=== PATIENT | female | born 1995 | race Caucasian/White ===

== ENCOUNTER 2018-02-22 07:43 | Outpatient (CLI) | payer OTHER ==
--- NOTE | 2018-02-22 10:30 | MRI ---
MRI OF THE LEFT ANKLE: DATE: 02/22/18. PROVIDED CLINICAL HISTORY: Left ankle pain. FINDINGS: The anterior extensor, medial flexor, peroneal and Achilles tendons demonstrate an intact MR appearan ce. The medial and lateral ankle ligaments appear intact. No tibiotalar articular cartilage defect is apparent. No regional joint effusion is evident. Regional marrow and muscular signal appear normal. The courses of the regional major neurovascular structures appear unremarkable. There is preservatio n of the normal fat signal intensity within the sinus tarsi. The plantar aponeurosis appears normal. IMPRESSION: No evidence for an acute process. POS: [facility]
== END 2018-02-22 07:44 | disposition home or self-care (01) ==
LOC: TBSIIMAG 07:43
PROVIDERS: ATTEND Pediatrics Sports Medicine
DX: M76.62 Achilles tendinitis, left leg (principal)